=== PATIENT | male | born 1965 | race Caucasian/White ===

== ENCOUNTER 2022-09-25 09:58 | Day surgery (SDC) | payer OTHER ==
[~2022-09-25] VITALS: Ht 182.9 cm; Wt 131.5 kg
[2022-09-25] MEDS ORDERED: LIDOCAINE 2%, 20 ML MDV INJ ONE (14:00)
[2022-09-25] MEDS ORDERED: DESFLURANE 15 MIN GAS INH ONE (14:00)
[2022-09-25] MEDS ORDERED: NS IRRIG SOLN 1000 ML IR ONE (14:00)
[2022-09-25] MEDS ORDERED: fentaNYL CITRATE 250 MCG/5 ML AMP IV ONE (14:00)
[2022-09-25] MEDS ORDERED: LR 1,000 ML IV.SOLN IV ONE (14:00)
[2022-09-25] MEDS ORDERED: PROPOFOL 200MG/ 20ML VIAL (DIPRIVAN) IV ONE (14:00)
[2022-09-25] MEDS ORDERED: CEFAZOLIN 2 GM IVPB PREMIX 50 ML IV ONE (14:00)
[2022-09-25] MEDS ORDERED: NS 1000 ML IV.SOLN IV ONE (14:00)
[2022-09-25] MEDS ORDERED: ROCURONIUM BROMIDE 10 MG/ML (ZEMURON) IV ONE (14:00)
[2022-09-25] MEDS ORDERED: ONDANSETRON HCL 4 MG/2 ML VIAL IVP ONE (14:00)
[2022-09-25] MEDS ORDERED: DEXAMETHASONE SOD PHOSPHATE 4 MG/ML VIAL IVP ONE (14:00)
[2022-09-25] MEDS ORDERED: SUGAMMADEX SODIUM 200 MG/2 ML VIAL IV ONE (14:00)
[2022-09-25] MEDS ORDERED: MIDAZOLAM HCL 5 MG/5 ML VIAL IVP ONE (14:00)
[2022-09-25] MEDS ORDERED: MUPIROCIN 2% TOPICAL OINTMENT 22 GM TP ONE (14:00)
[2022-09-25] MEDS ORDERED: ePHEDrine sulfate 50 MG/ML VIAL IVP ONE (14:00)
[2022-09-25] MEDS ORDERED: LIDOCAINE/EPI 1% 1:100000 20 ML VIAL INJ ONE (14:00)
[2022-09-25] MEDS ORDERED: ACETAMINOPHEN I.V. 1000 MG 100 ML IV ONE (14:08)
[2022-09-25] MEDS ORDERED: fentaNYL CITRATE/PF 100 MCG/2 ML AMP IVP ONE ×2 (15:30→18:00)
[2022-09-25] MEDS ORDERED: MEPERIDINE HCL/PF 25 MG/ML DISP.SYRIN IVP PRN (15:30)
[2022-09-25] MEDS ORDERED: ONDANSETRON HCL 4 MG/2 ML VIAL IVP PRN (15:30)
[2022-09-25] MEDS ORDERED: METOCLOPRAMIDE HCL 10 MG/2 ML VIAL IVP PRN (15:30)
[2022-09-25] MEDS ORDERED: NALOXONE HCL 0.4 MG/ML AMP (NARCAN) IVP PRN (15:30)
[2022-09-25] MEDS: hydrALAZINE HCL 20 MG/ML VIAL IVP PRN ×2 (16:00→16:05)
[2022-09-25] MEDS ORDERED: hydrALAZINE HCL 20 MG/ML VIAL ONE (16:02)
[2022-09-25] MEDS ORDERED: LABETALOL 100 MG/ 20ML VIAL IVP PRN (16:15)
[2022-09-25] MEDS ORDERED: fentaNYL CITRATE/PF 100 MCG/2 ML AMP ONE ×2 (16:42→18:02)
[2022-09-25 18:31] VITALS: BP_SYST 156
== END 2022-09-25 18:20 | disposition home or self-care (01) ==
LOC: SDS 09:58
PROVIDERS: ATTEND Otolaryngology
DX: J34.89 Other specified disorders of nose and nasal sinuses (principal); D38.5 Neoplasm of uncertain behavior of other respiratory organs; J34.2 Deviated nasal septum; J30.1 Allergic rhinitis due to pollen; Z20.822 Contact with and (suspected) exposure to COVID-19; E03.9 Hypothyroidism, unspecified; Z79.899 Other long term (current) drug therapy
CPT/HCPCS: 36415 ×2; 30520; 30140; 88304; 88311; 87426; U0003; J3490; J0690; J1100; J0360; J2001; J2250; J2405; J2704; J3010 ×2; J7120; J7030; J0131; 88305